=== PATIENT | female | born 1990 | race Caucasian/White ===

== ENCOUNTER 2017-06-04 02:50 | Emergency (ER) | payer OTHER ==
[~2017-06-04] VITALS: Ht 157.5 cm; Wt 56.9 kg
[2017-06-04 03:49] LABS: HEMATOCRIT 37.5 % (34.6-47.8); HEMOGLOBIN 12.8 g/dL (11.7-16.4); WHITE BLOOD COUNT 8.5 x10^3/uL (3.4-10)
[2017-06-04 03:53] LABS: BLOOD UREA NITROGEN 10 mg/dL (7-18)
[2017-06-04 04:53] VITALS: BP 92/54
== END 2017-06-04 04:59 | disposition home or self-care (01) ==
LOC: ED 04:14
DX: O20.0 Threatened abortion (principal); Z3A.12 12 weeks gestation of pregnancy
CPT/HCPCS: 36415; 76801; 80048; 82040; 84702; 85025; 86901; 99285

== ENCOUNTER 2017-12-09 22:13 | Outpatient (CLI) | payer OTHER ==
[~2017-12-09] VITALS: Ht 157.5 cm; Wt 65.0 kg
[2017-12-09 22:23] VITALS: BP 119/65
== END 2017-12-09 23:09 | disposition home or self-care (01) ==
LOC: LDOP 22:13
PROVIDERS: ATTEND Obstetrics & Gynecology
DX: O26.893 Other specified pregnancy related conditions, third trimester (principal); Z3A.39 39 weeks gestation of pregnancy
CPT/HCPCS: 59025; 99211; G0463

== ENCOUNTER 2017-12-12 09:03 | Inpatient (IN) | payer OTHER ==
[~2017-12-12] VITALS: Ht 157.5 cm; Wt 65.4 kg
[2017-12-12] MEDS ORDERED: LACTATED RINGERS 1,000 ML IV SCH (09:59)
[2017-12-12] MEDS ORDERED: OXYTOCIN 30U/ 0.9% NaCL 500ML 500 ML IV SCH (09:59)
[2017-12-12] MEDS ORDERED: METOCLOPRAMIDE 5 MG/ML, 2ML IV ONE (10:00)
[2017-12-12] MEDS ORDERED: LACTATED RINGERS 1,000 ML IVBOLUS ONE (10:00)
[2017-12-12] MEDS ORDERED: SODIUM CITRATE/CITRIC ACID 30 ML UDC PO ONE (10:00)
[2017-12-12] MEDS ORDERED: NEWBORN KIT ONE ×2 (10:01→10:03)
[2017-12-12] MEDS ORDERED: SODIUM CITRATE/CITRIC ACID 30 ML UDC ONE (10:04)
[2017-12-12] MEDS ORDERED: METOCLOPRAMIDE 5 MG/ML, 2ML ONE (10:04)
[2017-12-12] MEDS ORDERED: OXYTOCIN 30U/ 0.9% NaCL 500ML 500 ML ONE (10:04)
[2017-12-12 10:41] LABS: BASOPHILS # (AUTO) 0.01 x10^3/uL (0-0.1); BASOPHILS % (AUTO) 0 % (0-1); EOSINOPHILS # (AUTO) 0.03 x10^3/uL (0-0.4); EOSINOPHILS % (AUTO) 0 % (1-7); LYMPHOCYTES % (AUTO) 18 % (22-44); MD NO; MEAN CORPUSCULAR HEMOGLOBIN 31.6 pg (27.0-34.8); MEAN CORPUSCULAR HGB CONC 33.3 g/dL (32.4-35.8); MEAN CORPUSCULAR VOLUME 94.9 fL (80-100); MEAN PLATELET VOLUME 8.5 fL (7.4-10.4); MONOCYTES # (AUTO) 0.48 x10^3/uL (0.2-0.8); MONOCYTES % (AUTO) 5 % (2-9); NEUTROPHILS # (AUTO) 6.79 x10^3/uL (1.8-6.8); NEUTROPHILS % (AUTO) 76 % (42-75); PLATELET COUNT 209 x10^3/uL (130-400); RED BLOOD COUNT 3.81 x10^6/uL (3.82-5.3); RED CELL DISTRIBUTION WIDTH 13.8 % (9.6-15.2)
[2017-12-12] MEDS ORDERED: CEFAZOLIN 1,000 MG ONE (11:33)
[2017-12-12] MEDS ORDERED: EPINEPHRINE 1 MG/ML, 1ML ONE (11:33)
[2017-12-12] MEDS ORDERED: OXYTOCIN 10 UNITS/ML, 1ML ONE (11:33)
[2017-12-12] MEDS ORDERED: EPHEDRINE 50 MG/ML, 1ML ONE (11:33)
[2017-12-12] MEDS ORDERED: MEPERIDINE/PF 25MG/0.5ML IVPush PRN (12:00)
[2017-12-12] MEDS ORDERED: OXYcodone 5 MG/5 ML ORAL.SOL UDC PO PRN (12:00)
[2017-12-12] MEDS ORDERED: ONDANSETRON ODT 8 MG PO PRN (12:00)
[2017-12-12] MEDS ORDERED: FENTANYL PF 100 MCG/2ML IV PRN (12:00)
[2017-12-12] MEDS ORDERED: EPHEDRINE 50 MG/ML, 1ML IVPush PRN (12:00)
[2017-12-12] MEDS ORDERED: MORPHINE SULFATE 4 MG/ML, 1ML IVPush PRN (12:00)
[2017-12-12] MEDS ORDERED: KETOROLAC 30 MG/1 ML ONE (12:10)
[2017-12-12] MEDS: OXYTOCIN 30U/ 0.9% NaCL 500ML 500 ML IV SCH ×2 (13:29→23:29)
[2017-12-12] MEDS: LACTATED RINGERS 1,000 ML IV SCH ×4 (13:29→23:29)
[2017-12-12] MEDS ORDERED: morphine SULFATE 10 MG/ML, 1ML IVPush PRN (13:30)
[2017-12-12] MEDS ORDERED: MISOPROSTOL 200 MCG TABLET PR PRN (13:30)
[2017-12-12 15:15] VITALS: BP 136/71
[2017-12-12] MEDS: OXYcodone/APAP 5/325MG TABLET PO PRN ×2 (16:37→20:46)
[2017-12-12 20:00] VITALS: BP 114/74
[2017-12-12] MEDS: DOCUSATE 100 MG CAPSULE PO PRN (20:46)
[2017-12-12] MEDS: KETOROLAC 30 MG/1 ML IVPush PRN (20:46)
[2017-12-12 21:25] LABS: BASOPHILS # (AUTO) 0.03 x10^3/uL (0-0.1); BASOPHILS % (AUTO) 0 % (0-1); EOSINOPHILS # (AUTO) 0.02 x10^3/uL (0-0.4); EOSINOPHILS % (AUTO) 0 % (1-7); LYMPHOCYTES # (AUTO) 1.73 x10^3/uL (1-3.4); LYMPHOCYTES % (AUTO) 15 % (22-44); MD NO; MEAN CORPUSCULAR HEMOGLOBIN 31.7 pg (27.0-34.8); MEAN CORPUSCULAR HGB CONC 33.6 g/dL (32.4-35.8); MEAN CORPUSCULAR VOLUME 94.3 fL (80-100); MEAN PLATELET VOLUME 8.6 fL (7.4-10.4); MONOCYTES # (AUTO) 0.67 x10^3/uL (0.2-0.8); MONOCYTES % (AUTO) 6 % (2-9); NEUTROPHILS # (AUTO) 9.32 x10^3/uL (1.8-6.8); NEUTROPHILS % (AUTO) 79 % (42-75); PLATELET COUNT 168 x10^3/uL (130-400); RED BLOOD COUNT 3.62 x10^6/uL (3.82-5.3); RED CELL DISTRIBUTION WIDTH 13.6 % (9.6-15.2)
[2017-12-13] VITALS: BP 112/67
[2017-12-13] MEDS: OXYcodone/APAP 5/325MG TABLET PO PRN ×5 (00:39→20:59)
[2017-12-13] MEDS: KETOROLAC 30 MG/1 ML IVPush PRN ×3 (02:43→14:47)
[2017-12-13 04:00] VITALS: BP 104/60
[2017-12-13] MEDS: LACTATED RINGERS 1,000 ML IV SCH ×2 (05:29→09:29)
[2017-12-13 08:00] VITALS: BP 103/70
[2017-12-13] MEDS: PRENATAL VIT/IRON/FA 1 EACH TABLET PO SCH (08:47)
[2017-12-13] MEDS: DOCUSATE 100 MG CAPSULE PO PRN ×2 (08:47→20:59)
[2017-12-13] MEDS: OXYTOCIN 30U/ 0.9% NaCL 500ML 500 ML IV SCH (09:29)
[2017-12-13 19:30] VITALS: BP 108/75
[2017-12-13] MEDS: IBUPROFEN 600 MG TABLET PO PRN (20:59)
[2017-12-13] MEDS ORDERED: DIPH,PERTUSS(ACELL),TET VAC/PF NC IM-VACC ONE ×2 (21:12→21:30)
[2017-12-14] MEDS: OXYcodone IR 5MG TABLET PO PRN ×3 (02:42→12:32)
[2017-12-14] MEDS: IBUPROFEN 600 MG TABLET PO PRN ×3 (02:42→14:23)
[2017-12-14 07:00] VITALS: BP 103/61
[2017-12-14] MEDS: DOCUSATE 100 MG CAPSULE PO PRN (08:47)
[2017-12-14] MEDS: PRENATAL VIT/IRON/FA 1 EACH TABLET PO SCH (08:47)
[2017-12-14] MEDS ORDERED: OXYC-302 PO (13:32)
[2017-12-14] MEDS ORDERED: IBUP-1222 PO (13:32)
== END 2017-12-14 17:18 | disposition home or self-care (01) | DRG 766 ==
LOC: LDIP 09:58 → 2NW 14:59
PROVIDERS: ADMIT Obstetrics & Gynecology; ATTEND Obstetrics & Gynecology
PROC: 10D00Z1 Extraction of Products of Conception, Low, Open Approach (ICD-10-PCS; principal; 2017-12-12)
PROC: 0UB70ZZ Excision of Bilateral Fallopian Tubes, Open Approach (ICD-10-PCS; 2017-12-12)
DX: O34.211 Maternal care for low transverse scar from previous cesarean delivery (principal); Z37.0 Single live birth; Z30.2 Encounter for sterilization; Z3A.39 39 weeks gestation of pregnancy; Z80.3 Family history of malignant neoplasm of breast
CPT/HCPCS: 36415; 85025; 86850; 86900; 88302; 90715; J0171; J0690; J1885; J2590; J2765; J7120